=== PATIENT | female | born 1995 | race Hispanic/Latino ===

== ENCOUNTER 2020-09-01 16:56 | Day surgery (SDC) | payer OTHER ==
[2020-09-01 17:46] VITALS: BMI 39.9
[2020-09-01] MEDS ORDERED: hydrALAZINE 20 MG/ML VIAL SLOW IVP PRN (18:22)
== END 2020-09-01 19:50 | disposition home or self-care (01) ==
LOC: CSHLD/OP 16:56
PROVIDERS: ATTEND Family Medicine
DX: O36.8130 Decreased fetal movements, third trimester, not applicable or unspecified (principal); O98.813 Other maternal infectious and parasitic diseases complicating pregnancy, third trimester; B37.3 Candidiasis of vulva and vagina; O99.213 Obesity complicating pregnancy, third trimester; E66.9 Obesity, unspecified; Z3A.30 30 weeks gestation of pregnancy; Z79.82 Long term (current) use of aspirin
CPT/HCPCS: 76819; 87480; 87510; 87660; 99282